=== PATIENT | male | born 1940 | race Caucasian/White ===

== ENCOUNTER 2019-01-11 02:20 | Day surgery (SDC) | payer MEDICARE, OTHER ==
[~2019-01-11] VITALS: Ht 180.3 cm; Wt 102.0 kg
[~2019-01-11 02:20] MED LIST: CALCAVITD PO; CALCIUM 500 +1 EAC3 PO; CEPH500 PO; CLOBETTC TOP; IRBE75 PO; LEVSOD100 PO; LUPRON DEPOT45 MG IM; OMEPRAZOLE MAGN20 MG PO; RXONDA4ODT MM; TIROSINT100 MCG PO; VITAMIN D31000 UNIT PO
[2019-01-11] MEDS ORDERED: ASPI81CH PO (06:22)
[2019-01-11] MEDS ORDERED: ERLEADA60 MG PO (06:23)
[2019-01-11] MEDS ORDERED: IRBE75 PO (06:26)
[2019-01-11] MEDS ORDERED: Eligard45 MG (06:27)
--- NOTE | 2019-01-11 11:52 | NUR ---
DISCHARGE TEACHING PERFORMED WITH PT AND . AREAS OF MAXIMUM IMPORTANCE RELATIVE TO INFECTION CONTROL AND MAINTENANCE OF HEMOSTASIS HIGHLIGHTED AND REVIEWED VERBATIM. QUESTIONS ANSWERED. SIGNED ACKNOWLEDGEMENTS OBTAINED. HEMOSTASIS ACHIEVED WITHOUT DIFFICULTY. TR BAND REMOVED AND CLOTH DOT DSG APPLIED. SPLINT REAPPLIED TO ANTERIOR FA FOR MOBILITY RESTRICTIONS REMINDER. IV DC'D FROM L AC WITH CANNULA TIP INTACT. FOLDED 2X2 GAUZE APPLIED WITH LIGHT COBAN WRAP OVERLAY. PT ABLE TO DRESS SELF. PERMITTED TO AMBLULATE FOR DC IN COMPANY OF AND BROTHER.
== END 2019-01-11 12:00 | disposition home or self-care (01) ==
LOC: MHTC 02:20
DX: R94.39 Abnormal result of other cardiovascular function study (principal); I10 Essential (primary) hypertension; D61.818 Other pancytopenia; Z79.899 Other long term (current) drug therapy; Z79.82 Long term (current) use of aspirin
CPT/HCPCS: 93458; 99152; 99153; C1769; C1894; J0360; J1644; J2250; J3010; J7030; Q9967

== ENCOUNTER 2019-04-06 09:32 | Day surgery (SDC) | payer MEDICARE, OTHER ==
[~2019-04-06] VITALS: Ht 182.9 cm; Wt 102.0 kg
[~2019-04-06 09:32] MED LIST changes: +ASPI81CH PO; +ERLEADA60 MG PO; +Eligard45 MG
--- NOTE | 2019-04-06 14:34 | NUR ---
Dr. Kuhn reviewed chest x-ray, ekg. Dr. Barnes released pt for home. Pt stable with vss normal. Reviewed all dicharge inst. with family and patient. Color pink, in good spirits. Denies pain. IV removed #20 left ac removed cath intact. Home via w/c to private auto.
--- NOTE | 2019-04-06 15:05 | NUR ---
Late entry bilat lungs sound at 1400 clear.
== END 2019-04-06 14:58 | disposition home or self-care (01) ==
LOC: MHTC 09:32
DX: R00.1 Bradycardia, unspecified (principal); Z79.899 Other long term (current) drug therapy
CPT/HCPCS: 33208; 71046; 93005; 93010; 99152; 99153; C1785; C1898; J0690; J1644; J2250; J3010; J7030; J7040

== ENCOUNTER 2019-04-11 16:50 | Emergency (ER) | payer MEDICARE, OTHER ==
[~2019-04-11] VITALS: Ht 180.3 cm; Wt 97.5 kg
[2019-04-11 17:35] LABS: BASOPHILS ABSOLUTE AUTO 0.04 K/mm3 (0.00-0.23); BASOPHILS PERCENT AUTO 1 % (0-2); EOSINOPHILS ABSOLUTE AUTO 0.24 K/mm3 (0.00-0.68); EOSINOPHILS PERCENT AUTO 5 % (0-6); Hematocrit 33.2 % (37.0-53.0); Hemoglobin 11.2 g/dL (13.5-17.5); IMMATURE GRAN ABSOLUTE AUTO 0.01 K/mm3 (0.00-0.10); IMMATURE GRAN PERCENT AUTO 0 % (0-1); LYMPHOCYTES ABSOLUTE AUTO 1.43 K/mm3 (0.84-5.20); LYMPHOCYTES PERCENT AUTO 30 % (21-46); MONOCYTES ABSOLUTE AUTO 0.36 K/mm3 (0.16-1.47); MONOCYTES PERCENT AUTO 8 % (4-13); Mean Corpuscular HGB 33.4 pg (26.0-34.0); Mean Corpuscular HGB Conc 33.7 g/dL (31.5-36.5); Mean Corpuscular Volume 99 fL (80-100); Mean Platelet Volume 9.4 fL (9.1-12.4); NEUTROPHILS ABSOLUTE AUTO 2.71 K/mm3 (1.96-9.15); NEUTROPHILS PERCENT AUTO 57 % (41-73); Platelet Count 144 K/mm3 (150-400); RDW Coefficient Variation 12.7 % (11.7-14.2); RDW Standard Deviation 45.7 fL (35.1-46.3); Red Blood Cell Count 3.35 M/mm3 (4.30-5.90); White Blood Cell Count 4.79 K/mm3 (4.00-11.30)
[2019-04-11 18:02] LABS: Alanine Aminotransfer (ALT/SGP 17 U/L (12-78); Albumin, Blood 3.6 g/dL (3.4-5.0); Albumin/Globulin Ratio 1.2 (0.8-1.8); Alk Phos 88 U/L (50-136); Anion Gap 5 mmol/L (6-16); Aspartate Aminotrans (AST/SGOT 18 U/L (12-37); Bilirubin, Total 0.3 mg/dL (0.1-1.0); Blood Urea Nitrogen 30 mg/dL (8-24); Bun/Creatinine Ratio 27.5 (12.0-20.0); CO2, Blood 26 mmol/L (21-32); Calcium, Blood 8.6 mg/dL (8.5-10.1); Chloride, Blood 108 mmol/L (98-108); Creatinine, Blood 1.09 mg/dL (0.60-1.20); Globulin, Blood 2.9 g/dL (2.2-4.0); Glomerular Filtration Rate >60 (60-); Glucose, Blood 112 mg/dL (70-99); Potassium, Blood 4.2 mmol/L (3.5-5.5); Sodium, Blood 139 mmol/L (136-145); Total Protein, Blood 6.5 g/dL (6.4-8.2)
== END 2019-04-11 21:55 | disposition home or self-care (01) ==
LOC: ER 16:50
PROVIDERS: Physician Assistant
DX: E86.0 Dehydration (principal); Z79.899 Other long term (current) drug therapy; Z88.8 Allergy status to other drugs, medicaments and biological substances
CPT/HCPCS: 36415; 80053; 84484; 85025; 93005; 93010; 96360; 99285-25; J7030

== ENCOUNTER 2020-09-03 08:51 | Observation (INO) | payer MEDICARE, OTHER ==
[~2020-09-03] VITALS: Ht 180.3 cm; Wt 99.0 kg
[2020-09-03] MEDS ORDERED: TORSE20 PO ×2 (09:22→19:39)
[2020-09-03 10:41] LABS: BASOPHILS ABSOLUTE AUTO 0.03 K/mm3 (0.00-0.23); BASOPHILS PERCENT AUTO 1 % (0-2); EOSINOPHILS ABSOLUTE AUTO 0.22 K/mm3 (0.00-0.68); EOSINOPHILS PERCENT AUTO 5 % (0-6); Hemoglobin 12.4 g/dL (13.5-17.5); IMMATURE GRAN ABSOLUTE AUTO 0.01 K/mm3 (0.00-0.10); IMMATURE GRAN PERCENT AUTO 0 % (0-1); LYMPHOCYTES ABSOLUTE AUTO 1.96 K/mm3 (0.84-5.20); LYMPHOCYTES PERCENT AUTO 40 % (21-46); MONOCYTES ABSOLUTE AUTO 0.35 K/mm3 (0.16-1.47); MONOCYTES PERCENT AUTO 7 % (4-13); Mean Corpuscular HGB 32.3 pg (26.0-34.0); Mean Corpuscular HGB Conc 33.5 g/dL (31.5-36.5); Mean Corpuscular Volume 96 fL (80-100); Mean Platelet Volume 9.6 fL (9.1-12.4); NEUTROPHILS ABSOLUTE AUTO 2.37 K/mm3 (1.96-9.15); NEUTROPHILS PERCENT AUTO 48 % (41-73); Platelet Count 179 K/mm3 (150-400); RDW Coefficient Variation 12.4 % (11.7-14.2); RDW Standard Deviation 44.1 fL (35.1-46.3); Red Blood Cell Count 3.84 M/mm3 (4.30-5.90); White Blood Cell Count 4.94 K/mm3 (4.00-11.30)
[2020-09-03 10:57] LABS: Prothrombin Time Results 10.7 Sec (9.7-11.5)
[2020-09-03 11:00] LABS: Alanine Aminotransfer (ALT/SGP 22 U/L (12-78); Albumin, Blood 3.9 g/dL (3.4-5.0); Albumin/Globulin Ratio 1.2 (0.8-1.8); Alk Phos 76 U/L (50-136); Anion Gap 5 mmol/L (6-16); Aspartate Aminotrans (AST/SGOT 17 U/L (12-37); Bilirubin, Total 0.4 mg/dL (0.1-1.0); Blood Urea Nitrogen 33 mg/dL (8-24); Bun/Creatinine Ratio 32.7 (12.0-20.0); CO2, Blood 27 mmol/L (21-32); Calcium, Blood 9.3 mg/dL (8.5-10.1); Chloride, Blood 108 mmol/L (98-108); Creatinine, Blood 1.01 mg/dL (0.60-1.20); Globulin, Blood 3.3 g/dL (2.2-4.0); Glomerular Filtration Rate >60 (60-); Glucose, Blood 97 mg/dL (70-99); Potassium, Blood 4.1 mmol/L (3.5-5.5); Sodium, Blood 140 mmol/L (136-145); Total Protein, Blood 7.2 g/dL (6.4-8.2)
[2020-09-03] MEDS ORDERED: EUTHYROX112 MC1 PO (11:48)
--- NOTE | 2020-09-04 01:45 | NUR ---
09/04/20 0140 PT REQUESTED SEQ. STOCKINGS OFF. STATES HE CANNOT SLEEP WELL WITH THEM ON. RN REMOVED THEM.
--- NOTE | 2020-09-04 04:09 | NUR ---
09/04/20 0315 PT C/O NECK AND HEADACHE AT LEVEL "5". MEDICATED PER DEC. DENIED ANY OTHER S/S. C/O IV BEING IN AWKWARD SPOT IN ELBOW. RN OFFERED TO CHANGE SITE BUT PT DECLINED. PT PLANNED TO GO BACK TO SLEEP. HEART MONITOR STABLE WITH SINUS RHYTHM IN THE 60'S.
[2020-09-04 05:05] LABS: Hematocrit 32.3 % (37.0-53.0); Hemoglobin 10.6 g/dL (13.5-17.5); Mean Corpuscular HGB 32.2 pg (26.0-34.0); Mean Corpuscular HGB Conc 32.8 g/dL (31.5-36.5); Mean Corpuscular Volume 98 fL (80-100); Mean Platelet Volume 9.3 fL (9.1-12.4); Platelet Count 135 K/mm3 (150-400); RDW Coefficient Variation 12.2 % (11.7-14.2); RDW Standard Deviation 44.4 fL (35.1-46.3); Red Blood Cell Count 3.29 M/mm3 (4.30-5.90)
[2020-09-04 05:27] LABS: LDL/HDL RATIO 2.5; Very Low Density Lipoprot Chol 18 mg/dL (6-32)
[2020-09-04 05:28] LABS: Anion Gap 2 mmol/L (6-16); Blood Urea Nitrogen 29 mg/dL (8-24); Bun/Creatinine Ratio 29.7 (12.0-20.0); CHOL/HDL RATIO 3.9; CO2, Blood 31 mmol/L (21-32); Calcium, Blood 8.1 mg/dL (8.5-10.1); Chloride, Blood 109 mmol/L (98-108); Cholesterol 179 mg/dL (50-200); Creatinine, Blood 0.98 mg/dL (0.60-1.20); Glomerular Filtration Rate >60 (60-); Glucose, Blood 78 mg/dL (70-99); HDL Cholesterol 46 mg/dL (>39); Low Density Lipoprotein Chol 115 mg/dL (0-110); Sodium, Blood 142 mmol/L (136-145); Triglycerides 92 mg/dL (30-160)
[2020-09-04] MEDS ORDERED: ELIQUIS5 MG PO (11:28)
--- NOTE | 2020-09-04 11:49 | NUR ---
AWARE OF NEW SET ORTHOSTATIC VITAL SIGNS AND PER MD GUADALUPE TO D'C.
--- NOTE | 2020-09-04 12:16 | NUR ---
REVIEW D'C WITH PATIENT AND S.O. AWARE HAS F/U APPT W/ ON THURSDAY AND CAN RETURN IF ANY PROBLEMS BEFORE THEN. NO NEW MEDS. REVIEW WHEN TO TAKE WATER PILL. AWARE SHOULD WEIGH Q MORNING AND IF INCREASE IN WEIGHT OR SOB WILL NEED TO TAKE WATER PILL. REVIEW HOW TO USE JAUN HOSE AND PATIENT HELPED PUT THEM ON. REVIEW WHY USING JAUN HOSE. THIGH HIGH ON PATIENT AND KNOWS IF DOES NOT LIKE THEM CAN GET KNEE HIGH. ANSWER ALL QUESTIONS. WILL FINISH LUNCH AND LET US KNOW READY TO LEAVE
--- NOTE | 2020-09-04 14:00 | NUR ---
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 AT THIS TIME IS SITTING IN RECLINER. ADVISED THAT WANTED PATIENT TO F/U WITH ENT MD AND WAS LEANING TO POSSIBLE EAR PROBLEMS FOR HIS DIZZINESS. ADVISED SHANTHI TO CALL HE CAN GET INTO PATIENTS CHART AT [facility] AND SEE IF HE WANTS PATIENT TO START SOMETHING LIKE MECLIZINE. DISCUSSED MED WITH . ALSO ADVISED IF SEEMS LIKE WORSENING TO RETURN TO E.R. TO CALL PCP.
== END 2020-09-04 12:39 | disposition home or self-care (01) ==
LOC: ER 08:51 → MEDS 08:52
PROVIDERS: Nurse Practitioner Acute Care; Physician Assistant; ADMIT Internal Medicine
DX: I95.1 Orthostatic hypotension (principal); I48.0 Paroxysmal atrial fibrillation; I63.9 Cerebral infarction, unspecified; I11.9 Hypertensive heart disease without heart failure; R16.1 Splenomegaly, not elsewhere classified; C61 Malignant neoplasm of prostate; E03.9 Hypothyroidism, unspecified; Z95.0 Presence of cardiac pacemaker; Z79.01 Long term (current) use of anticoagulants; Z79.899 Other long term (current) drug therapy; Z88.8 Allergy status to other drugs, medicaments and biological substances
CPT/HCPCS: 36415; 70450; 71045; 80048; 80053; 80061; 83880; 84484; 85025; 85027; 85610; 93005; 93010; 93306; 93880; 97112; 97116; 97162; 97166; 99285-25; A9270; G0378; J7030

== ENCOUNTER 2021-03-11 06:27 | Day surgery (SDC) | payer MEDICARE, OTHER ==
[~2021-03-11 06:27] MED LIST changes: +ELIQUIS5 MG PO; +EUTHYROX112 MC1 PO; +TORSE20 PO
[2021-03-11] MEDS ORDERED: AMIODARONE HCL200 M1 PO (07:25)
--- NOTE | 2021-03-11 08:30 | NUR ---
DISCHARGE PT REMAINED A&OX3 AND DENIED ANY PAIN DURING RECOVERY. PT ABLE TO DRESS SELF AND AMBULATE WITH EASE. IV DC'S WITH CANULA IN TACT. POST EKG PERFORMED. DISCHARGE PAPERWORK GONE OVER WITH PT. PT VERBALLY STATED THE UNDERSTANDING OF THE DISCHARGE EDUCATION AND DENIED ANY QUESTIONS AT THIS TIME. PT WHEELED OUT BY THIS NURSE.
== END 2021-03-11 22:40 | disposition home or self-care (01) ==
LOC: MHTC 06:27
DX: I48.19 Other persistent atrial fibrillation (principal); Z79.01 Long term (current) use of anticoagulants; Z95.0 Presence of cardiac pacemaker; E03.9 Hypothyroidism, unspecified
CPT/HCPCS: 92960; 93005; 93010; J2704; J7030

== ENCOUNTER → 2021-05-28 | Outpatient (CLI) | payer MEDICARE, OTHER ==
[~2021-05-28] MED LIST changes: +AMIODARONE HCL200 M1 PO
[2021-05-28 17:32] LABS: Adenovirus F 40/41 Not Detected (NOT DETECT); Astrovirus Not Detected (NOT DETECT); Campylobacter Sp Not Detected (NOT DETECT); Cryptosporidium Not Detected (NOT DETECT); Cyclospora Cayetanensis Not Detected (NOT DETECT); E. Coli O157 Not Detected (NOT DETECT); Entamoeba Histolytica Not Detected (NOT DETECT); Enteroaggregative E. coli-EAEC Not Detected (NOT DETECT); Enteropathogenic E. coli-EPEC Not Detected (NOT DETECT); Enterotoxigenic E. coli-ETEC Not Detected (NOT DETECT); Giardia Lamblia Not Detected (NOT DETECT); Norovirus GI/GII Not Detected (NOT DETECT); Plesiomonas Shigelloides Not Detected (NOT DETECT); Rotavirus A Not Detected (NOT DETECT); Salmonella Sp Not Detected (NOT DETECT); Sapovirus Not Detected (NOT DETECT); Shiga Toxin-prod E. coli-STEC Not Detected (NOT DETECT); Shigella/Enteroin E. coli-EIEC Not Detected (NOT DETECT); Vibrio Cholerae Not Detected (NOT DETECT); Vibrio Sp Not Detected (NOT DETECT); Yersinia Enterocolitica Not Detected (NOT DETECT)
== END | disposition home or self-care (01) ==
LOC: LAB 06:45 → LAB SHORT 06:45
PROVIDERS: Internal Medicine
DX: R19.7 Diarrhea, unspecified (principal)
CPT/HCPCS: 0097U

== ENCOUNTER → 2021-11-04 | Outpatient (CLI) | payer MEDICARE, OTHER | END | disposition home or self-care (01) | LOC: LAB SHORT 11:20 | DX: L57.0 Actinic keratosis (principal); L73.9 Follicular disorder, unspecified; L90.5 Scar conditions and fibrosis of skin | CPT/HCPCS: 88305; 88312 ==

== ENCOUNTER 2022-07-30 16:59 | Emergency (ER) | payer MEDICARE, OTHER ==
[~2022-07-30] VITALS: Ht 180.3 cm; Wt 97.5 kg
[2022-07-30 17:44] LABS: BASOPHILS ABSOLUTE AUTO 0.02 K/mm3 (0.00-0.23); BASOPHILS PERCENT AUTO 0 % (0-2); EOSINOPHILS ABSOLUTE AUTO 0.02 K/mm3 (0.00-0.68); EOSINOPHILS PERCENT AUTO 0 % (0-6); Hematocrit 34.9 % (37.0-53.0); IMMATURE GRAN ABSOLUTE AUTO 0.02 K/mm3 (0.00-0.10); IMMATURE GRAN PERCENT AUTO 0 % (0-1); LYMPHOCYTES ABSOLUTE AUTO 1.04 K/mm3 (0.84-5.20); LYMPHOCYTES PERCENT AUTO 22 % (21-46); MONOCYTES ABSOLUTE AUTO 0.07 K/mm3 (0.16-1.47); MONOCYTES PERCENT AUTO 2 % (4-13); Mean Corpuscular HGB 32.9 pg (26.0-34.0); Mean Corpuscular HGB Conc 34.4 g/dL (31.5-36.5); Mean Corpuscular Volume 96 fL (80-100); Mean Platelet Volume 9.5 fL (9.1-12.4); NEUTROPHILS ABSOLUTE AUTO 3.57 K/mm3 (1.96-9.15); NEUTROPHILS PERCENT AUTO 75 % (41-73); Platelet Count 177 K/mm3 (150-400); RDW Coefficient Variation 12.6 % (11.7-14.2); RDW Standard Deviation 44.5 fL (35.1-46.3); Red Blood Cell Count 3.65 M/mm3 (4.30-5.90); White Blood Cell Count 4.74 K/mm3 (4.00-11.30)
[2022-07-30 18:09] LABS: Albumin/Globulin Ratio 1.4 (0.8-1.8); Bilirubin, Total 0.2 mg/dL (0.1-1.0); Bun/Creatinine Ratio 34.5 (12.0-20.0); Calcium, Blood 9.3 mg/dL (8.5-10.1); Creatinine, Blood 1.13 mg/dL (0.60-1.20); Globulin, Blood 2.8 g/dL (2.2-4.0); Potassium, Blood 4.3 mmol/L (3.5-5.5); Total Protein, Blood 6.8 g/dL (6.4-8.2)
[2022-07-30] MEDS ORDERED: JARDIANCE10 MG PO (22:00)
[2022-07-30] MEDS ORDERED: METO50ER PO (22:01)
[2022-07-30] MEDS ORDERED: DIGOX250 MCG PO (22:02)
[2022-07-30] MEDS ORDERED: ENTRESTO 24 MG1 EAC3 PO (22:02)
== END 2022-07-30 22:18 | disposition home or self-care (01) ==
LOC: ER 16:59
PROVIDERS: Physician Assistant
DX: Z45.018 Encounter for adjustment and management of other part of cardiac pacemaker (principal); E03.9 Hypothyroidism, unspecified; I10 Essential (primary) hypertension; Z79.899 Other long term (current) drug therapy; Z79.01 Long term (current) use of anticoagulants; Z91.09 Other allergy status, other than to drugs and biological substances
CPT/HCPCS: 36415; 80053; 84484; 85025; 93005; 93010

== ENCOUNTER → 2022-12-22 | Outpatient (CLI) | payer MEDICARE, OTHER ==
[~2022-12-22] MED LIST changes: +DIGOX250 MCG PO; +ENTRESTO 24 MG1 EAC3 PO; +JARDIANCE10 MG PO; +METO50ER PO
== END ==
LOC: LAB 07:27 → LAB SHORT 07:27
DX: L57.0 Actinic keratosis (principal)
CPT/HCPCS: 88305

== ENCOUNTER 2023-10-02 08:23 | Emergency (ER) | payer MEDICARE, OTHER ==
[~2023-10-02] VITALS: Ht 180.3 cm; Wt 97.5 kg
[2023-10-02 09:51] LABS: BASOPHILS ABSOLUTE AUTO 0.02 K/mm3 (0.00-0.23); BASOPHILS PERCENT AUTO 0 % (0-2); EOSINOPHILS ABSOLUTE AUTO 0.17 K/mm3 (0.00-0.68); EOSINOPHILS PERCENT AUTO 3 % (0-6); Hemoglobin 11.1 g/dL (13.5-17.5); IMMATURE GRAN ABSOLUTE AUTO 0.02 K/mm3 (0.00-0.10); IMMATURE GRAN PERCENT AUTO 0 % (0-1); LYMPHOCYTES ABSOLUTE AUTO 1.38 K/mm3 (0.84-5.20); LYMPHOCYTES PERCENT AUTO 25 % (21-46); MONOCYTES ABSOLUTE AUTO 0.43 K/mm3 (0.16-1.47); MONOCYTES PERCENT AUTO 8 % (4-13); Mean Corpuscular HGB 30.2 pg (26.0-34.0); Mean Corpuscular HGB Conc 32.6 g/dL (31.5-36.5); Mean Corpuscular Volume 93 fL (80-100); Mean Platelet Volume 9.1 fL (9.1-12.4); NEUTROPHILS ABSOLUTE AUTO 3.47 K/mm3 (1.96-9.15); NEUTROPHILS PERCENT AUTO 63 % (41-73); Platelet Count 166 K/mm3 (150-400); RDW Coefficient Variation 13.5 % (11.7-14.2); RDW Standard Deviation 45.8 fL (35.1-46.3); Red Blood Cell Count 3.67 M/mm3 (4.30-5.90); White Blood Cell Count 5.49 K/mm3 (4.00-11.30)
[2023-10-02 10:29] LABS: Alanine Aminotransfer (ALT/SGP 23 U/L (12-78); Albumin, Blood 3.4 g/dL (3.4-5.0); Albumin/Globulin Ratio 1.1 (0.8-1.8); Alk Phos 184 U/L (50-136); Anion Gap 5 mmol/L (6-16); Aspartate Aminotrans (AST/SGOT 20 U/L (12-37); Bilirubin, Total 0.4 mg/dL (0.1-1.0); Blood Urea Nitrogen 16 mg/dL (8-24); Bun/Creatinine Ratio 19.2 (12.0-20.0); CO2, Blood 25 mmol/L (21-32); Calcium, Blood 8.1 mg/dL (8.5-10.1); Chloride, Blood 110 mmol/L (98-108); Creatinine, Blood 0.83 mg/dL (0.60-1.20); Digoxin (Lanoxin) 0.74 ug/mL (0.80-2.00); Globulin, Blood 3.1 g/dL (2.2-4.0); Glomerular Filtration Rate 87 (60-); Glucose, Blood 106 mg/dL (70-99); Potassium, Blood 3.9 mmol/L (3.5-5.5); Sodium, Blood 140 mmol/L (136-145); Total Protein, Blood 6.5 g/dL (6.4-8.2)
[2023-10-02 14:50] VITALS: BP 140/63
== END 2023-10-02 15:01 | disposition home or self-care (01) ==
LOC: ER 08:23
PROVIDERS: Emergency Medicine
DX: R07.9 Chest pain, unspecified (principal); I10 Essential (primary) hypertension; I48.91 Unspecified atrial fibrillation; E03.9 Hypothyroidism, unspecified; C61 Malignant neoplasm of prostate; Z79.01 Long term (current) use of anticoagulants; Z79.899 Other long term (current) drug therapy; Z91.048 Other nonmedicinal substance allergy status; Z95.0 Presence of cardiac pacemaker
CPT/HCPCS: 71046; 80053; 80162; 83690; 84484; 85025; 93005; 93010; 99285-25; A9270

== ENCOUNTER → 2024-04-15 | Outpatient (CLI) | payer MEDICARE, OTHER ==
[2024-04-15 13:14] LABS: BASOPHILS ABSOLUTE AUTO 0.04 K/mm3 (0.00-0.23); BASOPHILS PERCENT AUTO 1 % (0-2); EOSINOPHILS PERCENT AUTO 5 % (0-6); Hematocrit 34.8 % (37.0-53.0); Hemoglobin 11.4 g/dL (13.5-17.5); IMMATURE GRAN ABSOLUTE AUTO 0.01 K/mm3 (0.00-0.10); IMMATURE GRAN PERCENT AUTO 0 % (0-1); LYMPHOCYTES PERCENT AUTO 30 % (21-46); MONOCYTES ABSOLUTE AUTO 0.34 K/mm3 (0.16-1.47); MONOCYTES PERCENT AUTO 9 % (4-13); Mean Corpuscular HGB 32.5 pg (26.0-34.0); Mean Corpuscular HGB Conc 32.8 g/dL (31.5-36.5); Mean Corpuscular Volume 99 fL (80-100); Mean Platelet Volume 9.7 fL (9.1-12.4); NEUTROPHILS ABSOLUTE AUTO 1.98 K/mm3 (1.96-9.15); NEUTROPHILS PERCENT AUTO 54 % (41-73); Platelet Count 124 K/mm3 (150-400); RDW Coefficient Variation 14.1 % (11.7-14.2); RDW Standard Deviation 50.9 fL (35.1-46.3); Red Blood Cell Count 3.51 M/mm3 (4.30-5.90); White Blood Cell Count 3.67 K/mm3 (4.00-11.30)
[2024-04-15 13:35] LABS: Albumin/Globulin Ratio 1.2 (0.8-1.8); Bilirubin, Total 0.6 mg/dL (0.1-1.0); Bun/Creatinine Ratio 45.5 (12.0-20.0); Calcium, Blood 9.1 mg/dL (8.5-10.1); Creatinine, Blood 1.1 mg/dL (0.60-1.20); Globulin, Blood 3.2 g/dL (2.2-4.0); Potassium, Blood 4.5 mmol/L (3.5-5.5); Total Protein, Blood 7.2 g/dL (6.4-8.2)
== END | disposition home or self-care (01) ==
LOC: LAB SHORT 10:41 → LAB 10:41 → EDSTATUS 11:49
PROVIDERS: Urology
DX: C61 Malignant neoplasm of prostate (principal); C79.51 Secondary malignant neoplasm of bone
CPT/HCPCS: 36415; 80053; 85025

== ENCOUNTER → 2024-12-29 | Outpatient (CLI) | payer MEDICARE, OTHER ==
[2024-12-29 14:39] LABS: Source, Urine Clean Catch
[2024-12-29 17:32] LABS: Bilirubin, Urine Neg (Neg); Blood, Urine Neg (Neg); Glucose Qualitative, Urine 3+ (Neg); Ketones, Urine Neg (Neg); Leukocyte Esterase, Urine Neg (Neg); Nitrite, Urine Neg (Neg); Protein, Urine 1+ (Neg); Urobilinogen, Urine NORM (Normal)
[2024-12-29 17:50] LABS: Appearance, Urine Clear (Clear); Color, Urine Pale Yellow (P-Yellow)
[2024-12-29 20:20] LABS: Bun/Creatinine Ratio 28.3 (12.0-20.0); Creatinine, Blood 1.38 mg/dL (0.60-1.20); Potassium, Blood 3.9 mmol/L (3.5-5.5)
== END ==
LOC: LAB 14:37 → LAB SHORT 14:37 → LAB FUT 10-06 12:35
PROVIDERS: Internal Medicine
DX: R31.29 Other microscopic hematuria (principal); C61 Malignant neoplasm of prostate
CPT/HCPCS: 36415; 80048

== ENCOUNTER → 2025-01-30 | Outpatient (CLI) | payer MEDICARE, OTHER ==
[2025-02-02 15:30] LABS: ALBUMIN %,URINE 55.1 %; ALPHA-1 %,URINE 13.1 %; ALPHA-2 %,URINE 10.4 %; BETA GLOBULIN %,URINE 5.3 %; GAMMA GLOBULIN %,URINE 16.1 %; HOURS COLLECTED 24 hr; TOTAL VOLUME 1500 mL
== END | disposition home or self-care (01) ==
LOC: LAB 09:47 → LAB SHORT 09:47 → EDSTATUS 01-24 15:30 → LAB FUT 01-24 15:30
PROVIDERS: Internal Medicine
DX: N18.31 Chronic kidney disease, stage 3a (principal); R79.89 Other specified abnormal findings of blood chemistry
CPT/HCPCS: 81050; 84156; 84166; 86335

== ENCOUNTER 2025-02-13 15:45 | Emergency (ER) | payer MEDICARE, OTHER ==
[~2025-02-13] VITALS: Ht 180.3 cm; Wt 83.9 kg
[2025-02-13 15:52] VITALS: BP 138/120
== END 2025-02-13 17:28 | disposition home or self-care (01) ==
LOC: ER 15:45
DX: R33.9 Retention of urine, unspecified (principal); C61 Malignant neoplasm of prostate; E03.9 Hypothyroidism, unspecified; I48.91 Unspecified atrial fibrillation; I10 Essential (primary) hypertension; Z95.0 Presence of cardiac pacemaker; Z91.048 Other nonmedicinal substance allergy status; Z79.84 Long term (current) use of oral hypoglycemic drugs; Z79.890 Hormone replacement therapy; Z79.01 Long term (current) use of anticoagulants; Z79.899 Other long term (current) drug therapy
CPT/HCPCS: 51702; 99283-25

== ENCOUNTER 2025-10-05 12:39 | Emergency (ER) | payer MEDICARE, OTHER ==
[~2025-10-05] VITALS: Ht 180.3 cm; Wt 83.9 kg
[2025-10-05 14:13] LABS: BASOPHILS ABSOLUTE AUTO 0.03 K/mm3 (0.00-0.23); BASOPHILS PERCENT AUTO 1 % (0-2); EOSINOPHILS ABSOLUTE AUTO 0.19 K/mm3 (0.00-0.68); EOSINOPHILS PERCENT AUTO 4 % (0-6); Hematocrit 29.5 % (37.0-53.0); Hemoglobin 10.4 g/dL (13.5-17.5); IMMATURE GRAN ABSOLUTE AUTO 0.01 K/mm3 (0.00-0.10); IMMATURE GRAN PERCENT AUTO 0 % (0-1); LYMPHOCYTES ABSOLUTE AUTO 0.99 K/mm3 (0.84-5.20); LYMPHOCYTES PERCENT AUTO 18 % (21-46); MONOCYTES ABSOLUTE AUTO 0.53 K/mm3 (0.16-1.47); MONOCYTES PERCENT AUTO 10 % (4-13); Mean Corpuscular HGB Conc 35.3 g/dL (31.5-36.5); Mean Corpuscular Volume 102 fL (80-100); NEUTROPHILS ABSOLUTE AUTO 3.72 K/mm3 (1.96-9.15); NEUTROPHILS PERCENT AUTO 68 % (41-73); NRBC ABSOLUTE 0.00 K/mm3 (0.00-0.02); NRBC Auto 0.0 /100 WBC (0.0-0.2); Platelet Count 212 K/mm3 (150-400); RDW Coefficient Variation 13.6 % (11.7-14.2); RDW Standard Deviation 50.5 fL (35.1-46.3)
[2025-10-05 14:37] LABS: Alanine Aminotransfer (ALT/SGP 23.0 U/L (12-78); Albumin, Blood 3.4 g/dL (3.4-5.0); Albumin/Globulin Ratio 1.0 (0.8-1.8); Anion Gap 7.0 mmol/L (3-11); Aspartate Aminotrans (AST/SGOT 19.0 U/L (12-37); Bilirubin, Total 0.6 mg/dL (0.1-1.0); Blood Urea Nitrogen 35.0 mg/dL (8-24); CO2, Blood 29.0 mmol/L (21-32); Calcium, Blood 9.0 mg/dL (8.5-10.1); Chloride, Blood 101.0 mmol/L (98-108); Creatinine, Blood 1.54 mg/dL (0.60-1.20); Globulin, Blood 3.5 g/dL (2.2-4.0); Glucose, Blood 101.0 mg/dL (70-99); Potassium, Blood 3.2 mmol/L (3.5-5.5); Sodium, Blood 134.0 mmol/L (136-145); Total Protein, Blood 6.9 g/dL (6.4-8.2)
[2025-10-05 16:35] VITALS: BP 130/86
[2025-10-05] MEDS ORDERED: HYDROcodone 5-APAP 325 TAB PO ONE (17:10)
[2025-10-05] MEDS ORDERED: Norco 5-325 Ta1 EACH PO (17:15)
== END 2025-10-05 17:20 | disposition home or self-care (01) ==
LOC: ER 12:39
PROVIDERS: Physician Assistant
DX: S20.211A Contusion of right front wall of thorax, initial encounter (principal); M54.50 Low back pain, unspecified; W19.XXXA Unspecified fall, initial encounter; I48.91 Unspecified atrial fibrillation; Z79.01 Long term (current) use of anticoagulants
CPT/HCPCS: 74177; 80053; 85025; 99284-25; A9270; Q9967